=== PATIENT | male | born 1955 | race Caucasian/White ===

== ENCOUNTER 2023-04-05 20:48 | Emergency (ER) | payer MEDICARE, OTHER ==
[~2023-04-05] VITALS: Ht 175.3 cm; Wt 103.4 kg
[2023-04-05] MEDS ORDERED: CEphaleXIN 500 MG CAPSULE PO ONE (21:00)
[2023-04-05] MEDS ORDERED: SODIUM BICARBONATE 4.2 % (NEUT) 5 ML VIAL TP ONE (21:00)
[2023-04-05] MEDS ORDERED: LIDOCAINE 1%-EPI 1:100,000 20 ML VIAL IJ ONE (21:00)
[2023-04-05] MEDS ORDERED: TDAP DIPH,PERTUSS,TET VAC/PF 0.5 ML DISP.SYRIN IM ONE ×2 (21:00→21:50)
[2023-04-05] MEDS ORDERED: TAMS-3 PO (21:16)
[2023-04-05] MEDS ORDERED: LORA10CA PO (21:16)
[2023-04-05] MEDS ORDERED: LATA2.5D2 EACHEYE (21:16)
[2023-04-05] MEDS ORDERED: PANT40TA49 PO (21:16)
[2023-04-05] MEDS ORDERED: MELA5TAB21 PO (21:16)
[2023-04-05] MEDS ORDERED: AMLO10TA59 PO (21:16)
[2023-04-05] MEDS ORDERED: FINA5TAB11 PO (21:16)
[2023-04-05] MEDS ORDERED: LAMO25TA10 PO (21:16)
[2023-04-05] MEDS ORDERED: OXCA600T8 PO (21:16)
[2023-04-05] MEDS ORDERED: ATOR40TA PO (21:16)
[2023-04-05] MEDS ORDERED: WARF-58 PO (21:16)
[2023-04-05] MEDS ORDERED: LAMO200T10 PO (21:16)
[2023-04-05] MEDS ORDERED: CEPH500T PO (21:18)
[2023-04-05] MEDS ORDERED: SODIUM BICARBONATE 4.2 % (NEUT) 5 ML VIAL ONE (21:48)
[2023-04-05] MEDS ORDERED: CEphaleXIN 500 MG CAPSULE ONE (21:49)
[2023-04-05] MEDS ORDERED: LIDOCAINE 2%-EPI 1:100,000 20 ML VIAL ONE (21:49)
[2023-04-06 00:48] VITALS: BP 144/90; TEMP 98.3; O2SAT 98
== END 2023-04-06 00:50 ==
LOC: ER 20:51
DX: S01.112A Laceration without foreign body of left eyelid and periocular area, initial encounter (principal); R51.9 Headache, unspecified; Z79.899 Other long term (current) drug therapy; I96 Gangrene, not elsewhere classified; T45.515A Adverse effect of anticoagulants, initial encounter; Z88.5 Allergy status to narcotic agent; Y92.89 Other specified places as the place of occurrence of the external cause; W01.0XXA Fall on same level from slipping, tripping and stumbling without subsequent striking against object, initial encounter; Y93.89 Activity, other specified; Y99.8 Other external cause status
CPT/HCPCS: 12011; 70450; 90471; 90715; 99285; J3490; A4606; A4663